=== PATIENT | male | born 1965 | race Caucasian/White ===

== ENCOUNTER → 2017-04-26 | Outpatient (CLI) | payer BC ==
--- NOTE | 2017-04-26 15:17 | PCVCIMAG ---
APPROVED REPORT Exam: Stress Echocardiogram Indication: Dyspnea , Hypertension,Family hx CAD Patient Location: Echo lab Stress Nurse: Blessing Coelho RN Room #: 2 Status: routine Ht: 5 ft 10 in HR: 96 bpm BP: 134/82 mmHg Rhythm: NSR Medical History Medical History: Hyperlipidemia, Obesity , HTN Cardiac Risk Factors: HTN, Hyperlipidemia, FHX of CAD Previous Cardiac Procedures: none Pretest Chest Pain Characteristics: No chest pain Exercise History: Sedentary Procedure The patient underwent an Exercise Stress Test using the Beth Protocol. Blood pressure, heart rate, and EKG were monitored. An Echocardiogram was performed by loom technician in four stages in quad fashion. At peak stress, four selected images were obtained and placed side by side with resting images for comparison. Stress Test Details Stress Test: Exercise stress testing was performed using a Beth protocol. HR Resting HR: 96 bpmMax Heart Rate (APMHR): 169 bpm Max HR Achieved: 157 bpmTarget HR (85% APMHR): 143 bpm % of APMHR: 92 Recovery HR: 105 bpm HR response to stress: Normal HR response to stress BP Resting BP: 134/82 mmHg Max BP: 184/80 mmHg Recovery BP: 206/82 mmHg ECG Resting ECG: Sinus Rhythm Stress ECG: Sinus Rhythm ST Change: Non-ischemic Maximum ST Deviation: 0.3 mm Arrhythmia: None Recovery ECG: Sinus Rhythm Recovery ST Change: Non-ischemic Recovery ST Deviation: 0.25 mm Recovery Arrhythmia: None Clinical Reason for Termination: Maximal effort, Dyspnea Stress Symptoms: none Exercise duration: 7 min sec Highest Stage Achieved: Stage 3: 3.4 mph at 14% grade. Exercise capacity: 10.4 METs Overall Exercise Capacity for Age: Poor Angina Score: None No complications. Stress ECG Conclusion The patient exercised according to the BETH protocol for 7:00, achieving a work level of Max. METS: 10.4 . The resting heart rate of 105 bpm kathleen to a maximal heart rate of 157 bpm. This value represents 92% of the maximal, age-predicted heart rate. The resting blood pressure of 134/82 mmHg, kathleen to a maximum blood pressure of 206/82 mmHg. The exercise test was stopped due to dyspnea and fatigue. Higgins Treadmill Score is 5.5 which is Low risk. Pre-Stress Echo The resting Echocardiogram showed normal left ventricular contractility with an estimated Ejection Fraction of about 55-60%. Normal wall motion in all segments on baseline images. Post-Stress Echo The stress Echocardiogram showed normal left ventricular contractility with an estimated Ejection Fraction of about 65-70%. Normal augmentation of wall motion in all segments on post stress images. Clinical No clinical or ECG evidence for ischemia. Conclusion Clinical Response: Non-ischemic Exercise Capacity: Average Stress ECG Response: Non-ischemic Stress Echo Images: Non-ischemic No clinical, EKG or echocardiographic evidence for ischemia. No echocardiographic evidence for exercise induced ischemia. Normal stress echocardiogram with maximal exercise stress. <Conclusion> No clinical, EKG or echocardiographic evidence for ischemia. No echocardiographic evidence for exercise induced ischemia. Normal stress echocardiogram with maximal exercise stress.
--- NOTE | 2017-04-26 15:18 | PCVCIMAG ---
APPROVED REPORT Study performed: 04/26/2017 13:35:44 EXAM: Comprehensive 2D, Doppler, and color-flow Echocardiogram Patient Location: Echo lab Room #: 2Status: routine BSA: 2.41 HR: 96 bpmBP: 134/82 mmHg Rhythm: NSR Other Information Study Quality: Good Risk Factors: Cardiac Risk Factors: HTN, Hyperlipidemia, obesity, fam hx CAD Indications Dyspnea Hypertension/HDD 2D Dimensions LVEF(%): 89.80 (>50%) IVSd: 8.86 (7-11mm)LVOT Diam: 22.38 (18-24mm) LVDd: 42.78 mm PWd: 9.60 (7-11mm)Ascending Ao: 33.40 (22-36mm) LVDs: 16.99 (25-40mm) Left Atrium: 22.15 (27-40mm) Aortic Root: 31.95 mm LV Single Plane 4CH: 61.02 % LV Single Plane 2CH: 57.81 %Cunningham's LVEF: 59.42 % Biplane EF: 59.6 % Volumes Left Atrial Volume (Systole) Single Plane 4CH: 54.25 mLSingle Plane 2CH: 57.40 mL Biplane LA Volume: 58.00 mLLA ESV Index: 24.00 mL/m2 Aortic Valve AoV Peak Zay.: 1.24 m/s AO Peak Gr.: 6.14 mmHgLVOT Max P.33 mmHg LVOT Max V: 0.91 m/s ROSANNA Vmax: 2.90 cm2 Mitral Valve E/A Ratio: 0.9 MV Decel. Time: 231.19 ms MV E Max Zay.: 0.72 m/s MV A Zay.: 0.80 m/s IVRT: 86.51 ms TDI E/Lateral E': 9.00E/Medial E': 10.29 Medial E' Zay.: 0.07 m/s Lateral E' Zay.: 0.08 m/s Pulmonary Valve PV Peak Zay.: 1.05 m/sPV Peak Gr.: 4.42 mmHg Pulmonary Vein P Vein S: 0.42 m/sP Vein A: 0.31 m/s P Vein D: 0.41 m/sP Vein A Dur.: 83.0 msec P Vein S/D Ratio: 1.02 Tricuspid Valve TV Vmax: 0.53 m/s Left Ventricle The left ventricle is normal size. There is normal LV segmental wall motion. Left ventricular thickness is at the upper limits of normal. Left ventricular systolic function is normal. The left ventricular ejection fraction is within the normal range. LVEF is 60%. Grade I - abnormal relaxation pattern. Right Ventricle The right ventricle is normal size. The right ventricular systolic function is normal. Atria The left atrium size is normal. The right atrium size is normal. Aortic Valve The aortic valve is normal in structure. No aortic regurgitation is present. There is no aortic valvular stenosis. Mitral Valve The mitral valve is normal in structure. There is no mitral valve regurgitation noted. No evidence of mitral valve stenosis. Tricuspid Valve The tricuspid valve is normal in structure. There is no tricuspid valve regurgitation noted. Pulmonic Valve The pulmonary valve is normal in structure. There is no pulmonic valvular regurgitation. Great Vessels The aortic root is normal in size. The ascending aorta is normal in size. IVC is normal in size and collapses >50% with inspiration. Pericardium There is no pericardial effusion. There is no pleural effusion. <Conclusion> The left ventricle is normal size. Left ventricular systolic function is normal. The right ventricle is normal size. The left atrium size is normal. The aortic valve is normal in structure. There is no mitral valve regurgitation noted. There is no pericardial effusion.
== END | disposition home or self-care (01) ==
LOC: PCVCIMAG 13:22
PROVIDERS: ATTEND Internal Medicine Cardiovascular Disease
DX: I10 Essential (primary) hypertension (principal); E78.00 Pure hypercholesterolemia, unspecified; E66.01 Morbid (severe) obesity due to excess calories; Z68.41 Body mass index [BMI] 40.0-44.9, adult; Z82.49 Family history of ischemic heart disease and other diseases of the circulatory system; Z79.899 Other long term (current) drug therapy; Z87.891 Personal history of nicotine dependence
CPT/HCPCS: 93306; 93351; G0463